=== PATIENT | female | born 1960 | race Caucasian/White ===

== ENCOUNTER 2021-02-05 04:47 | Emergency (ER) | payer MEDICAID ==
[~2021-02-05] VITALS: Ht 165.1 cm; Wt 115.9 kg
[2021-02-05 05:03] VITALS: BP 157/100
[2021-02-05] MEDS ORDERED: GABA-1181 PO (05:08)
[2021-02-05] MEDS ORDERED: SERT-162 PO (05:08)
[2021-02-05] MEDS ORDERED: HYDR25TA2 PO (05:08)
[2021-02-05] MEDS ORDERED: LISI-894 PO (05:08)
[2021-02-05] MEDS ORDERED: CHOL500043 PO (05:08)
[2021-02-05] MEDS ORDERED: NAPR-1197 PO (05:08)
== END 2021-02-05 08:14 | disposition left against medical advice (07) ==
LOC: EMS 04:48
DX: M79.672 Pain in left foot (principal); Z53.21 Procedure and treatment not carried out due to patient leaving prior to being seen by health care provider